=== PATIENT | female | born 1960 | race Caucasian/White ===

== ENCOUNTER 2016-06-30 16:55 | Inpatient (IN) | payer MEDICAID ==
[2016-06-30] MEDS ORDERED: Sodium Chloride 0.9% 10 ML Syringe FLUSH PRN ×2 (19:30→22:48)
[2016-06-30] MEDS ORDERED: Sodium Chloride 0.9% 1,000 ML IV SCH ×3 (19:45→22:48)
--- NOTE | 2016-06-30 21:26 | EDM.PDOC ---
ED HPI GENERAL MEDICAL PROBLEM - General Chief Complaint: General Stated Complaint: SOB, SPACEY, STAGE 4 LIVER CIRROSIS Time Seen by Provider: 06/30/16 18:30 Source of Information: Reports: Family History Limitations: Reports: No limitations - History of Present Illness INITIAL COMMENTS - FREE TEXT/NARRATIVE: This 56-year-old white female was brought in for little status changes. 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 She's been told she can't be transplanted until she lose some weight. Her said that for several days she's been a little [employer] sharp and for the last 3 days she's actually been confused. Today she seems lethargic. Her and worries that she may have gotten into some kind of a drug area she has a history of opiate addict but has been clean for 4 years. Today she didn't know who the president was or even her own birthday. For several days before that she was having problems texting and this was distressing to her. She has complained of burning on urination and he thinks she has had this for a while and just didn't tell him. About 4 days ago she had a bone scan and received some type of injection for this. Her also noted that this morning when she wiped there was a little bit of blood on it he's not sure if it was in stool or in the urine. There is no history of any dark tarry stools. There has been no history of any kind of falls. She doesn't use any alcohol - Related Data Allergies Allergy/AdvReac Type Severity Reaction Status Date / Time venom-honey bee Allergy Swelling Verified 01/24/15 09:19 [bee venom (honey bee)] gabapentin AdvReac Other Verified 06/30/16 17:24 oxycodone HCl [From Percocet] AdvReac Other Verified 06/30/16 17:24 tramadol AdvReac Other Verified 06/30/16 17:24 Deerfly Allergy Swelling Uncoded 01/24/15 09:19 Horsefly Allergy Swelling Uncoded 06/30/16 17:24 Home Meds: Home Meds Amitriptyline [Elavil] 25 mg PO BEDTIME 01/21/15 [History] Ascorbic Acid [Ascorbic Acid] 500 mg PO DAILY 01/21/15 [History] Calcium Carbonate [Calcium] 500 mg PO DAILY 01/21/15 [History] Cetirizine [ZyrTEC] 10 mg PO DAILY PRN 01/21/15 [History] Cholecalciferol (Vitamin D3) [Decara] 50,000 unit PO WEEKLY 01/21/15 [History] Cholecalciferol (Vitamin D3) [Vitamin D3] 5,000 unit PO DAILY 01/21/15 [History] Cyanocobalamin (Vitamin B-12) [Cyanocobalamin Injection] 1,000 mcg IJ Q30D 01/21 [History] Ferrous Sulfate 325 mg PO WITHBREAKFAST 01/21/15 [History] Folic Acid 1 mg PO DAILY 01/21/15 [History] Ibuprofen 600 mg PO Q6H PRN 01/21/15 [History] Loperamide [Imodium AD] 2 mg PO QID PRN 01/21/15 [History] Omeprazole [Prilosec] 40 mg PO DAILY 01/21/15 [History] Sertraline HCl [Sertraline HCl] 100 mg PO DAILY 01/21/15 [History] rOPINIRole HCl [Requip] 1 mg PO BID 01/21/15 [History] Multivitamin [Multiple Vitamins] 1 tab PO DAILY 01/24/15 [History] Dulaglutide [Trulicity] 0.75 mg SQ WEEKLY 12/16/15 [History] Past Medical History Other HEENT History: seasonal allergies Gastrointestinal History: Reports: Cirrhosis Other Gastrointestinal History: incisional hernia Other Musculoskeletal History: right knee pain Other Neuro History: 1 seizure "medication related" Other Endocrine/Metabolic History: borderline DM Social & Family History - Tobacco Use Smoking Status *Q: Never Smoker Years of Tobacco use: 2 Packs/Tins Daily: 0 Used Tobacco, but Quit: Yes Month Tobacco Last Used: o Second Hand Smoke Exposure: No - Recreational Drug Use Recreational Drug Use: No ED ROS GENERAL - Review of Systems Review Of Systems: Unable To Obtain (The patient is too lethargic to obtain a reliable review of systems) ED EXAM, GENERAL - Physical Exam Exam: See Below Exam Limited By: Altered mental status General Appearance: no apparent distress, lethargic, obese Eye Exam: bilateral eye: PERRL, other (No scleral icterus) Throat/Mouth: Other (Mucous membranes slightly dry) Head: atraumatic Neck: supple Respiratory/Chest: lungs clear (Lungs clear but exam is limited because of her obesity) Cardiovascular: regular rate, rhythm, no murmur GI/Abdominal: other (Very obese but doesn't appear distended.) Rectal (Female) Exam: Normal Exam (Slightly yellowish stool just a tiny amount obtained. No evidence of any melena or bleeding) Extremities: normal inspection Neurological: slow to respond, other (The patient can't respond to voice but generally can't give meaningful responses.) Psychiatric: other (She seems lethargic but otherwise comfortable) Skin Exam: Warm, Dry, Intact, Normal color Course - Vital Signs Last Recorded V/S: Last Vital Signs Temp 36.1 C 06/30/16 17:39 Pulse 105 H 06/30/16 20:42 Resp 18 06/30/16 20:42 BP 136/98 H 06/30/16 20:42 Pulse Ox 100 06/30/16 20:42 - Orders/Labs/Meds Orders: Active Orders 24 hr Category Date Time Status EKG Documentation Completion [RC] ASDIRECTED Care 06/30/16 19:30 Active Head wo Cont [CT] Stat Exams 06/30/16 19:33 Taken Sodium Chloride 0.9% [Normal Saline] 1,000 ml Med 06/30/16 19:45 Active IV ASDIRECTED Sodium Chloride 0.9% [Normal Saline] 1,000 ml Med 06/30/16 21:00 Ordered IV ASDIRECTED Sodium Chloride 0.9% [Saline Flush] Med 06/30/16 19:30 Active 10 ml FLUSH ASDIRECTED PRN Saline Lock Insert [OM.PC] Urgent Oth 06/30/16 19:28 Ordered EKG 12 Lead [EK] Urgent Ther 06/30/16 19:29 Ordered Medication Orders Sodium Chloride (Normal Saline) 1,000 mls @ 999 mls/hr IV ASDIRECTED TERRA Last Admin: 06/30/16 20:38 Dose: 999 mls/hr Sodium Chloride (Normal Saline) 1,000 mls @ 150 mls/hr IV ASDIRECTED TERRA Sodium Chloride (Saline Flush) 10 ml FLUSH ASDIRECTED PRN PRN Reason: Keep Vein Open Last Admin: 06/30/16 20:38 Dose: 10 ml Labs: Laboratory Tests 06/30/16 06/30/16 06/30/16 Range/Units 19:46 19:46 19:46 WBC 6.7 (4.5-11.0) K/uL RBC 3.95 (3.30-5.50) M/uL Hgb 10.6 L (12.0-15.0) g/dL Hct 32.9 L (36.0-48.0) % MCV 83 (80-98) fL MCH 27 (27-31) pg MCHC 32 (32-36) % Plt Count 69 L (150-400) K/uL Neut % (Auto) 70 H (36-66) % Lymph % (Auto) 17 L (24-44) % Amelia % (Auto) 11 H (2-6) % Eos % (Auto) 2 (2-4) % Baso % (Auto) 1 (0-1) % PT 14.7 H (9.5-12.0) sec INR 1.37 H (0.80-1.20) APTT 35.7 (27.0-36.0) sec Sodium 144 (140-148) mmol/L Potassium 3.4 L (3.6-5.2) mmol/L Chloride 111 H (100-108) mmol/L Carbon Dioxide 23 (21-32) mmol/L Anion Gap 13.4 (5.0-14.0) mmol/L BUN 14 (7-18) mg/dL Creatinine 0.9 (0.6-1.0) mg/dL Est Cr Clr Drug Dosing 57.05 mL/min Estimated GFR (MDRD) > 60 (>60) Glucose 89 (74-106) mg/dL Lactic Acid (0.4-2.0) mmol/L Calcium 8.0 L (8.5-10.1) mg/dL Total Bilirubin 2.2 H (0.2-1.0) mg/dL AST 71 H (15-37) U/L ALT 33 (12-78) U/L Alkaline Phosphatase 214 H (46-116) U/L Ammonia (11-32) mmol/L Total Protein 6.1 L (6.4-8.2) g/dL Albumin 2.5 L (3.4-5.0) g/dL Globulin 3.6 H (2.3-3.5) g/dL Albumin/Globulin Ratio 0.7 L (1.2-2.2) Urine Color Urine Appearance Urine pH (4.5-8.0) Ur Specific [place] (1.008-1.030) Urine Protein (NEGATIVE) mg/dL Urine Glucose (UA) (NEGATIVE) mg/dL Urine Ketones (NEGATIVE) mg/dL Urine Occult Blood (NEGATIVE) Urine Nitrite (NEGATIVE) Urine Bilirubin (NEGATIVE) Urine Urobilinogen (NORMAL) mg/dL Ur Leukocyte Esterase (NEGATIVE) Urine RBC (0-5) Urine WBC (0-5) Ur Epithelial Cells Amorphous Sediment Urine Bacteria Urine Mucus Urine Opiates Screen (NEGATIVE) Ur Oxycodone Screen (NEGATIVE) Urine Methadone Screen (NEGATIVE) Ur Propoxyphene Screen (NEGATIVE) Ur Barbiturates Screen (NEGATIVE) Ur Tricyclics Screen (NEGATIVE) Ur Phencyclidine Scrn (NEGATIVE) Ur Amphetamine Screen (NEGATIVE) U Methamphetamines Scrn (NEGATIVE) Urine MDMA Screen (NEGATIVE) U Benzodiazepines Scrn (NEGATIVE) U Cocaine Metab Screen (NEGATIVE) U Marijuana (THC) Screen (NEGATIVE) 06/30/16 06/30/16 06/30/16 Range/Units 19:46 19:46 19:57 WBC (4.5-11.0) K/uL RBC (3.30-5.50) M/uL Hgb (12.0-15.0) g/dL Hct (36.0-48.0) % MCV (80-98) fL MCH (27-31) pg MCHC (32-36) % Plt Count (150-400) K/uL Neut % (Auto) (36-66) % Lymph % (Auto) (24-44) % Amelia % (Auto) (2-6) % Eos % (Auto) (2-4) % Baso % (Auto) (0-1) % PT (9.5-12.0) sec INR (0.80-1.20) APTT (27.0-36.0) sec Sodium (140-148) mmol/L Potassium (3.6-5.2) mmol/L Chloride (100-108) mmol/L Carbon Dioxide (21-32) mmol/L Anion Gap (5.0-14.0) mmol/L BUN (7-18) mg/dL Creatinine (0.6-1.0) mg/dL Est Cr Clr Drug Dosing mL/min Estimated GFR (MDRD) (>60) Glucose (74-106) mg/dL Lactic Acid 1.8 (0.4-2.0) mmol/L Calcium (8.5-10.1) mg/dL Total Bilirubin (0.2-1.0) mg/dL AST (15-37) U/L ALT (12-78) U/L Alkaline Phosphatase (46-116) U/L Ammonia 166 H (11-32) mmol/L Total Protein (6.4-8.2) g/dL Albumin (3.4-5.0) g/dL Globulin (2.3-3.5) g/dL Albumin/Globulin Ratio (1.2-2.2) Urine Color Yellow Urine Appearance Slightly cloudy Urine pH 6.0 (4.5-8.0) Ur Specific [place] 1.020 (1.008-1.030) Urine Protein Negative (NEGATIVE) mg/dL Urine Glucose (UA) Normal (NEGATIVE) mg/dL Urine Ketones Negative (NEGATIVE) mg/dL Urine Occult Blood Negative (NEGATIVE) Urine Nitrite Negative (NEGATIVE) Urine Bilirubin Small (NEGATIVE) Urine Urobilinogen 4 (NORMAL) mg/dL Ur Leukocyte Esterase Negative (NEGATIVE) Urine RBC Not seen (0-5) Urine WBC Not seen (0-5) Ur Epithelial Cells Few Amorphous Sediment Few Urine Bacteria Rare Urine Mucus Few Urine Opiates Screen (NEGATIVE) Ur Oxycodone Screen (NEGATIVE) Urine Methadone Screen (NEGATIVE) Ur Propoxyphene Screen (NEGATIVE) Ur Barbiturates Screen (NEGATIVE) Ur Tricyclics Screen (NEGATIVE) Ur Phencyclidine Scrn (NEGATIVE) Ur Amphetamine Screen (NEGATIVE) U Methamphetamines Scrn (NEGATIVE) Urine MDMA Screen (NEGATIVE) U Benzodiazepines Scrn (NEGATIVE) U Cocaine Metab Screen (NEGATIVE) U Marijuana (THC) Screen (NEGATIVE) 06/30/16 Range/Units 19:57 WBC (4.5-11.0) K/uL RBC (3.30-5.50) M/uL Hgb (12.0-15.0) g/dL Hct (36.0-48.0) % MCV (80-98) fL MCH (27-31) pg MCHC (32-36) % Plt Count (150-400) K/uL Neut % (Auto) (36-66) % Lymph % (Auto) (24-44) % Amelia % (Auto) (2-6) % Eos % (Auto) (2-4) % Baso % (Auto) (0-1) % PT (9.5-12.0) sec INR (0.80-1.20) APTT (27.0-36.0) sec Sodium (140-148) mmol/L Potassium (3.6-5.2) mmol/L Chloride (100-108) mmol/L Carbon Dioxide (21-32) mmol/L Anion Gap (5.0-14.0) mmol/L BUN (7-18) mg/dL Creatinine (0.6-1.0) mg/dL Est Cr Clr Drug Dosing mL/min Estimated GFR (MDRD) (>60) Glucose (74-106) mg/dL Lactic Acid (0.4-2.0) mmol/L Calcium (8.5-10.1) mg/dL Total Bilirubin (0.2-1.0) mg/dL AST (15-37) U/L ALT (12-78) U/L Alkaline Phosphatase (46-116) U/L Ammonia (11-32) mmol/L Total Protein (6.4-8.2) g/dL Albumin (3.4-5.0) g/dL Globulin (2.3-3.5) g/dL Albumin/Globulin Ratio (1.2-2.2) Urine Color Urine Appearance Urine pH (4.5-8.0) Ur Specific [place] (1.008-1.030) Urine Protein (NEGATIVE) mg/dL Urine Glucose (UA) (NEGATIVE) mg/dL Urine Ketones (NEGATIVE) mg/dL Urine Occult Blood (NEGATIVE) Urine Nitrite (NEGATIVE) Urine Bilirubin (NEGATIVE) Urine Urobilinogen (NORMAL) mg/dL Ur Leukocyte Esterase (NEGATIVE) Urine RBC (0-5) Urine WBC (0-5) Ur Epithelial Cells Amorphous Sediment Urine Bacteria Urine Mucus Urine Opiates Screen Negative (NEGATIVE) Ur Oxycodone Screen Negative (NEGATIVE) Urine Methadone Screen Negative (NEGATIVE) Ur Propoxyphene Screen Negative (NEGATIVE) Ur Barbiturates Screen Negative (NEGATIVE) Ur Tricyclics Screen Positive H (NEGATIVE) Ur Phencyclidine Scrn Negative (NEGATIVE) Ur Amphetamine Screen Negative (NEGATIVE) U Methamphetamines Scrn Negative (NEGATIVE) Urine MDMA Screen Negative (NEGATIVE) U Benzodiazepines Scrn Negative (NEGATIVE) U Cocaine Metab Screen Negative (NEGATIVE) U Marijuana (THC) Screen Negative (NEGATIVE) Meds: Medications Generic Name Dose Route Start Last Admin Trade Name Williamq PRN Reason Stop Dose Admin Sodium Chloride 1,000 mls @ 999 mls/hr 06/30/16 19:45 06/30/16 20:38 Normal Saline IV 999 mls/hr ASDIRECTED TERRA Administration Sodium Chloride 1,000 mls @ 150 mls/hr 06/30/16 21:00 Normal Saline IV ASDIRECTED TERRA Sodium Chloride 10 ml 06/30/16 19:30 06/30/16 20:38 Saline Flush FLUSH 10 ml ASDIRECTED PRN Administration Keep Vein Open - Radiology Interpretation Free Text/Narrative:: Head CT shows no acute intracranial pathology. - Re-Assessments/Exams Free Text/Narrative Re-Assessment/Exam: 06/30/16 21:30 An EKG shows a sinus rhythm at 97 beats per minute there is prolonged QT intervals. Normal QRS is Free Text/Narrative Re-Assessment/Exam: 06/30/16 21:30 After my initial workup I noted that shortness of breath was included in the chief complaint. Neither the patient nor her mentions any of this. Will go ahead and get a chest x-ray. Labs were back on this patient had been done and the ammonia level of 166. She' s been hydrated with 1 L of normal saline. She seems slightly more alert. I spoke with Dr. Taylor and this lady will be admitted to the ICU. I felt like she is just a little bit too lethargic to go to the regular medical floor Departure - Departure Time of Disposition: 21:32 Disposition: Admitted As Inpatient 65 Condition: serious Clinical Impression: Hepatic encephalopathy Forms: ED Department Discharge - My Orders Last 24 Hours: My Active Orders 06/30/16 19:28 Saline Lock Insert [OM.PC] Urgent 06/30/16 19:29 EKG 12 Lead [EK] Urgent 06/30/16 19:30 EKG Documentation Completion [RC] ASDIRECTED Sodium Chloride 0.9% [Saline Flush] 10 ml FLUSH ASDIRECTED PRN 06/30/16 19:33 Head wo Cont [CT] Stat 06/30/16 19:45 Sodium Chloride 0.9% [Normal Saline] 1,000 ml IV ASDIRECTED 06/30/16 21:00 Sodium Chloride 0.9% [Normal Saline] 1,000 ml IV ASDIRECTED - Assessment/Plan Last 24 Hours: My Active Orders 06/30/16 19:28 Saline Lock Insert [OM.PC] Urgent 06/30/16 19:29 EKG 12 Lead [EK] Urgent 06/30/16 19:30 EKG Documentation Completion [RC] ASDIRECTED Sodium Chloride 0.9% [Saline Flush] 10 ml FLUSH ASDIRECTED PRN 06/30/16 19:33 Head wo Cont [CT] Stat 06/30/16 19:45 Sodium Chloride 0.9% [Normal Saline] 1,000 ml IV ASDIRECTED 06/30/16 21:00 Sodium Chloride 0.9% [Normal Saline] 1,000 ml IV ASDIRECTED
[2016-06-30] MEDS ORDERED: Lactulose Soln 10 GM/15 ML 15 ML UD Cup PO ONE (22:17)
[2016-06-30] MEDS ORDERED: Sodium Polystyrene Sulfonate 15 GM/60 ML Susp 60 ML Bot ONE (22:21)
[2016-06-30] MEDS ORDERED: Lactulose Soln 10 GM/15 ML 15 ML UD Cup ONE (22:25)
--- NOTE | 2016-06-30 22:36 | PCM.HP ---
H&P History of Present Illness - General Date of Service: 06/30/16 Admit Problem/Dx: Admission Diagnosis/Problem Admission Diagnosis/Problem Hepatic encephalopathy Source of Information: Patient, Family, Old records, Provider, RN notes reviewed History Limitations: Reports: Altered mental status (Hepatic encephalopathy) - History of Present Illness Initial Comments - Free Text/Narative: This patient is a 56-year-old woman who was admitted through the emergency department with progressive lethargy, confusion, and weakness over the past 4 days. Patient herself is fairly confused and unable to provide an accurate history concerning recent symptoms or events. states that for the past week she has been mildly confused but this is become significantly worse over the past 4 days. This morning she was extremely lethargic he had difficulty getting her to wake up. She was brought into the emergency department late this afternoon or further evaluation and management. CT scan of the head without contrast is unremarkable, urine drug screen is negative, there've been no new medications, and there's no evidence of underlying infection. 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 [place] level was obtained it was significantly elevated at 166. - Related Data Allergies/Adverse Reactions: Allergies Allergy/AdvReac Type Severity Reaction Status Date / Time venom-honey bee Allergy Swelling Verified 01/24/15 09:19 [bee venom (honey bee)] gabapentin AdvReac Other Verified 06/30/16 17:24 oxycodone HCl [From Percocet] AdvReac Other Verified 06/30/16 17:24 tramadol AdvReac Other Verified 06/30/16 17:24 Deerfly Allergy Swelling Uncoded 01/24/15 09:19 Horsefly Allergy Swelling Uncoded 06/30/16 17:24 Home Medications: Home Meds Amitriptyline [Elavil] 25 mg PO BEDTIME 01/21/15 [History] Ascorbic Acid [Ascorbic Acid] 500 mg PO DAILY 01/21/15 [History] Calcium Carbonate [Calcium] 500 mg PO DAILY 01/21/15 [History] Cetirizine [ZyrTEC] 10 mg PO DAILY PRN 01/21/15 [History] Cholecalciferol (Vitamin D3) [Decara] 50,000 unit PO WEEKLY 01/21/15 [History] Cholecalciferol (Vitamin D3) [Vitamin D3] 5,000 unit PO DAILY 01/21/15 [History] Cyanocobalamin (Vitamin B-12) [Cyanocobalamin Injection] 1,000 mcg IJ Q30D 01/21 [History] Ferrous Sulfate 325 mg PO WITHBREAKFAST 01/21/15 [History] Folic Acid 1 mg PO DAILY 01/21/15 [History] Ibuprofen 600 mg PO Q6H PRN 01/21/15 [History] Loperamide [Imodium AD] 2 mg PO QID PRN 01/21/15 [History] Omeprazole [Prilosec] 40 mg PO DAILY 01/21/15 [History] Sertraline HCl [Sertraline HCl] 100 mg PO DAILY 01/21/15 [History] rOPINIRole HCl [Requip] 1 mg PO BID 01/21/15 [History] Multivitamin [Multiple Vitamins] 1 tab PO DAILY 01/24/15 [History] Dulaglutide [Trulicity] 0.75 mg SQ WEEKLY 12/16/15 [History] Past Medical History Other HEENT History: seasonal allergies Gastrointestinal History: Reports: Cirrhosis Other Gastrointestinal History: incisional hernia Other Musculoskeletal History: right knee pain Other Neuro History: 1 seizure "medication related" Other Endocrine/Metabolic History: borderline DM Social & Family History - Tobacco Use Smoking Status *Q: Never Smoker Years of Tobacco use: 2 Packs/Tins Daily: 0 Used Tobacco, but Quit: Yes Month Tobacco Last Used: o Second Hand Smoke Exposure: No - Recreational Drug Use Recreational Drug Use: No H&P Review of Systems - Review of Systems: Review Of Systems: Unable To Obtain General: Reports: ROS unobtainable (Significant hepatic encephalopathy) Exam - Exam Exam: See Below - Vital Signs Vital Signs: Last Vital Signs Temp 97.0 F 06/30/16 17:39 Pulse 100 06/30/16 21:43 Resp 18 06/30/16 20:42 BP 122/54 L 06/30/16 21:43 Pulse Ox 100 06/30/16 21:43 Weight: 270 lb - Exam General: cooperative, mild distress HEENT: Conjunctiva clear, Hearing intact, Mucosa moist & pink, Nares patent, Normal nasal septum, Posterior pharynx clear, Pupils equal, Pupils reactive Neck: supple, trachea midline, +2 carotid pulse wo bruit Lungs: Clear to auscultation, Normal respiratory effort Cardiovascular: regular rhythm, normal S1, normal S2, tachycardia. No: systolic murmur, diastolic murmur Abdomen: normal bowel sounds, soft Back Exam: normal inspection, full range of motion, NT Extremities: edema Skin: warm, dry, intact Neurological: cranial nerves intact, strength equal bilateral, normal speech, normal tone, sensation intact. No: focal deficit Neuro Extensive - Mental Status: disorientation to place, disorientation to time , memory loss-remote events, memory loss-recent events, slow response to commands. No: disorientation to person - Patient Data Lab Results last 24 hrs: Laboratory Results - last 24 hr 06/30/16 06/30/16 06/30/16 Range/Units 19:46 19:46 19:46 WBC 6.7 (4.5-11.0) K/uL RBC 3.95 (3.30-5.50) M/uL Hgb 10.6 L (12.0-15.0) g/dL Hct 32.9 L (36.0-48.0) % MCV 83 (80-98) fL MCH 27 (27-31) pg MCHC 32 (32-36) % Plt Count 69 L (150-400) K/uL Neut % (Auto) 70 H (36-66) % Lymph % (Auto) 17 L (24-44) % [place] % (Auto) 11 H (2-6) % Eos % (Auto) 2 (2-4) % Baso % (Auto) 1 (0-1) % PT 14.7 H (9.5-12.0) sec INR 1.37 H (0.80-1.20) APTT 35.7 (27.0-36.0) sec Sodium 144 (140-148) mmol/L Potassium 3.4 L (3.6-5.2) mmol/L Chloride 111 H (100-108) mmol/L Carbon Dioxide 23 (21-32) mmol/L Anion Gap 13.4 (5.0-14.0) mmol/L BUN 14 (7-18) mg/dL Creatinine 0.9 (0.6-1.0) mg/dL Est Cr Clr Drug Dosing 57.05 mL/min Estimated GFR (MDRD) > 60 (>60) Glucose 89 (74-106) mg/dL Lactic Acid (0.4-2.0) mmol/L Calcium 8.0 L (8.5-10.1) mg/dL Total Bilirubin 2.2 H (0.2-1.0) mg/dL AST 71 H (15-37) U/L ALT 33 (12-78) U/L Alkaline Phosphatase 214 H (46-116) U/L Ammonia (11-32) mmol/L Total Protein 6.1 L (6.4-8.2) g/dL Albumin 2.5 L (3.4-5.0) g/dL Globulin 3.6 H (2.3-3.5) g/dL Albumin/Globulin Ratio 0.7 L (1.2-2.2) Urine Color Urine Appearance Urine pH (4.5-8.0) Ur Specific [place] (1.008-1.030) Urine Protein (NEGATIVE) mg/dL Urine Glucose (UA) (NEGATIVE) mg/dL Urine Ketones (NEGATIVE) mg/dL Urine Occult Blood (NEGATIVE) Urine Nitrite (NEGATIVE) Urine Bilirubin (NEGATIVE) Urine Urobilinogen (NORMAL) mg/dL Ur Leukocyte Esterase (NEGATIVE) Urine RBC (0-5) Urine WBC (0-5) Ur Epithelial Cells Amorphous Sediment Urine Bacteria Urine Mucus Urine Opiates Screen (NEGATIVE) Ur Oxycodone Screen (NEGATIVE) Urine Methadone Screen (NEGATIVE) Ur Propoxyphene Screen (NEGATIVE) Ur Barbiturates Screen (NEGATIVE) Ur Tricyclics Screen (NEGATIVE) Ur Phencyclidine Scrn (NEGATIVE) Ur Amphetamine Screen (NEGATIVE) U Methamphetamines Scrn (NEGATIVE) Urine MDMA Screen (NEGATIVE) U Benzodiazepines Scrn (NEGATIVE) U Cocaine Metab Screen (NEGATIVE) U Marijuana (THC) Screen (NEGATIVE) 06/30/16 06/30/16 06/30/16 Range/Units 19:46 19:46 19:57 WBC (4.5-11.0) K/uL RBC (3.30-5.50) M/uL Hgb (12.0-15.0) g/dL Hct (36.0-48.0) % MCV (80-98) fL MCH (27-31) pg MCHC (32-36) % Plt Count (150-400) K/uL Neut % (Auto) (36-66) % Lymph % (Auto) (24-44) % [place] % (Auto) (2-6) % Eos % (Auto) (2-4) % Baso % (Auto) (0-1) % PT (9.5-12.0) sec INR (0.80-1.20) APTT (27.0-36.0) sec Sodium (140-148) mmol/L Potassium (3.6-5.2) mmol/L Chloride (100-108) mmol/L Carbon Dioxide (21-32) mmol/L Anion Gap (5.0-14.0) mmol/L BUN (7-18) mg/dL Creatinine (0.6-1.0) mg/dL Est Cr Clr Drug Dosing mL/min Estimated GFR (MDRD) (>60) Glucose (74-106) mg/dL Lactic Acid 1.8 (0.4-2.0) mmol/L Calcium (8.5-10.1) mg/dL Total Bilirubin (0.2-1.0) mg/dL AST (15-37) U/L ALT (12-78) U/L Alkaline Phosphatase (46-116) U/L Ammonia 166 H (11-32) mmol/L Total Protein (6.4-8.2) g/dL Albumin (3.4-5.0) g/dL Globulin (2.3-3.5) g/dL Albumin/Globulin Ratio (1.2-2.2) Urine Color Yellow Urine Appearance Slightly cloudy Urine pH 6.0 (4.5-8.0) Ur Specific [place] 1.020 (1.008-1.030) Urine Protein Negative (NEGATIVE) mg/dL Urine Glucose (UA) Normal (NEGATIVE) mg/dL Urine Ketones Negative (NEGATIVE) mg/dL Urine Occult Blood Negative (NEGATIVE) Urine Nitrite Negative (NEGATIVE) Urine Bilirubin Small (NEGATIVE) Urine Urobilinogen 4 (NORMAL) mg/dL Ur Leukocyte Esterase Negative (NEGATIVE) Urine RBC Not seen (0-5) Urine WBC Not seen (0-5) Ur Epithelial Cells Few Amorphous Sediment Few Urine Bacteria Rare Urine Mucus Few Urine Opiates Screen (NEGATIVE) Ur Oxycodone Screen (NEGATIVE) Urine Methadone Screen (NEGATIVE) Ur Propoxyphene Screen (NEGATIVE) Ur Barbiturates Screen (NEGATIVE) Ur Tricyclics Screen (NEGATIVE) Ur Phencyclidine Scrn (NEGATIVE) Ur Amphetamine Screen (NEGATIVE) U Methamphetamines Scrn (NEGATIVE) Urine MDMA Screen (NEGATIVE) U Benzodiazepines Scrn (NEGATIVE) U Cocaine Metab Screen (NEGATIVE) U Marijuana (THC) Screen (NEGATIVE) 06/30/16 Range/Units 19:57 WBC (4.5-11.0) K/uL RBC (3.30-5.50) M/uL Hgb (12.0-15.0) g/dL Hct (36.0-48.0) % MCV (80-98) fL MCH (27-31) pg MCHC (32-36) % Plt Count (150-400) K/uL Neut % (Auto) (36-66) % Lymph % (Auto) (24-44) % [place] % (Auto) (2-6) % Eos % (Auto) (2-4) % Baso % (Auto) (0-1) % PT (9.5-12.0) sec INR (0.80-1.20) APTT (27.0-36.0) sec Sodium (140-148) mmol/L Potassium (3.6-5.2) mmol/L Chloride (100-108) mmol/L Carbon Dioxide (21-32) mmol/L Anion Gap (5.0-14.0) mmol/L BUN (7-18) mg/dL Creatinine (0.6-1.0) mg/dL Est Cr Clr Drug Dosing mL/min Estimated GFR (MDRD) (>60) Glucose (74-106) mg/dL Lactic Acid (0.4-2.0) mmol/L Calcium (8.5-10.1) mg/dL Total Bilirubin (0.2-1.0) mg/dL AST (15-37) U/L ALT (12-78) U/L Alkaline Phosphatase (46-116) U/L Ammonia (11-32) mmol/L Total Protein (6.4-8.2) g/dL Albumin (3.4-5.0) g/dL Globulin (2.3-3.5) g/dL Albumin/Globulin Ratio (1.2-2.2) Urine Color Urine Appearance Urine pH (4.5-8.0) Ur Specific [place] (1.008-1.030) Urine Protein (NEGATIVE) mg/dL Urine Glucose (UA) (NEGATIVE) mg/dL Urine Ketones (NEGATIVE) mg/dL Urine Occult Blood (NEGATIVE) Urine Nitrite (NEGATIVE) Urine Bilirubin (NEGATIVE) Urine Urobilinogen (NORMAL) mg/dL Ur Leukocyte Esterase (NEGATIVE) Urine RBC (0-5) Urine WBC (0-5) Ur Epithelial Cells Amorphous Sediment Urine Bacteria Urine Mucus Urine Opiates Screen Negative (NEGATIVE) Ur Oxycodone Screen Negative (NEGATIVE) Urine Methadone Screen Negative (NEGATIVE) Ur Propoxyphene Screen Negative (NEGATIVE) Ur Barbiturates Screen Negative (NEGATIVE) Ur Tricyclics Screen Positive H (NEGATIVE) Ur Phencyclidine Scrn Negative (NEGATIVE) Ur Amphetamine Screen Negative (NEGATIVE) U Methamphetamines Scrn Negative (NEGATIVE) Urine MDMA Screen Negative (NEGATIVE) U Benzodiazepines Scrn Negative (NEGATIVE) U Cocaine Metab Screen Negative (NEGATIVE) U Marijuana (THC) Screen Negative (NEGATIVE) Result Diagrams: 06/30/16 19:46 06/30/16 19:46 *Q Meaningful Use (ADM) - VTE *Q VTE Criteria *Q: - VTE Risk Assess *Q Each Risk Factor Represents 1 Point: Age 41 - 59 years Total Score 1 Point Risk Factors: 1 Each Risk Factor Represents 2 Points: Morbid Obesity (BMI Greater than 40) Total Score 2 Point Risk Factors: 2 Each Risk Factor Represents 3 Points: None Total Score 3 Point Risk Factors: 0 Each Risk Factor Represents 5 Points: None Total Score 5 Point Risk Factors: 0 Venous Thromboembolism Risk Factor Score *Q: 3 - Stroke *Q Stroke Criteria *Q: - AMI *Q AMI Criteria *Q: Problem List Initiated/Reviewed/Updated: Yes Orders Last 24hrs: Active Orders 24 hr Category Date Time Status Patient Status Manage Transfer [TRANSFER] Routine ADT 06/30/16 22:17 Active Cardiac Monitoring [RC] .As Directed Care 06/30/16 22:17 Active EKG Documentation Completion [RC] ASDIRECTED Care 06/30/16 19:30 Active Chest 1V Frontal [CR] Urgent Exams 06/30/16 21:20 Taken Head wo Cont [CT] Stat Exams 06/30/16 19:33 Taken Sodium Chloride 0.9% [Normal Saline] 1,000 ml Med 06/30/16 19:45 Active IV ASDIRECTED Sodium Chloride 0.9% [Normal Saline] 1,000 ml Med 06/30/16 21:00 Active IV ASDIRECTED Sodium Chloride 0.9% [Saline Flush] Med 06/30/16 19:30 Active 10 ml FLUSH ASDIRECTED PRN Saline Lock Insert [OM.PC] Urgent Oth 06/30/16 19:28 Ordered Resuscitation Status Routine Resus Stat 06/30/16 22:19 Ordered EKG 12 Lead [EK] Urgent Ther 06/30/16 19:29 Ordered Medication Orders Sodium Chloride (Normal Saline) 1,000 mls @ 999 mls/hr IV ASDIRECTED TERRA Last Admin: 06/30/16 20:38 Dose: 999 mls/hr Sodium Chloride (Normal Saline) 1,000 mls @ 150 mls/hr IV ASDIRECTED TERRA Last Admin: 06/30/16 21:45 Dose: 150 mls/hr Sodium Chloride (Saline Flush) 10 ml FLUSH ASDIRECTED PRN PRN Reason: Keep Vein Open Last Admin: 06/30/16 20:38 Dose: 10 ml Assessment/Plan Comment:: ASSESSMENT AND PLAN HEPATIC ENCEPHALOPATHY-on evaluation there is no PER DIEM PHYSICAL THERAPIST abnormality, evidence of infection, other significant metabolic abnormality, or new medication. Multilevel is significantly elevated consistent with this diagnosis. -Hold sedating medications -Lactulose 45 g by mouth now -Lactulose 30 g by mouth every 4 hours -Repeat ammonia level in the a.m. -Monitor closely for any evidence of underlying infection, none noted thus far -Review appropriate dietary modifications with patient and family wants encephalopathy has cleared HEPATIC CIRRHOSIS-secondary to non-alcoholic steatohepatitis MAINTENANCE ISSUES -DVT prophylaxis; Lovenox 40 mg subcutaneous daily -GI prophylaxis; continue outpatient PPI therapy -Hernandez catheter; not indicated -Nutrition; 2 g sodium diet -Nicotine dependence; not required CODE STATUS-FULL CODE ADMISSION STATUS-patient will be admitted to inpatient status, expect at least a 2 night hospital stay for evaluation and management of problems as outlined above. At the time of this admission I do not reasonably expected evaluation and management of this problem will require more than a 96 hour hospital stay. DISPOSITION-anticipate discharge to home after the hospital stay. PRIMARY CARE PROVIDER-Dr. Darryl Patrick
[2016-06-30] MEDS ORDERED: Albuterol 0.083% 2.5 MG/3 ML Neb Soln NEB PRN (22:48)
[2016-06-30] MEDS ORDERED: Ondansetron 4 MG/2 ML SDV IV PRN (22:48)
[2016-06-30] MEDS ORDERED: Potassium Chloride 20 MEQ Tab.ER PO ONE (22:48)
[2016-07-01] MEDS ORDERED: Lactulose Soln 10 GM/15 ML 15 ML UD Cup PO SCH ×2 (03:00→08:00)
[2016-07-01] MEDS: Pantoprazole 40 MG Tab.CR PO SCH (07:23)
[2016-07-01] MEDS: Sertraline 50 MG Tab PO SCH (08:34)
[2016-07-01] MEDS ORDERED: Enoxaparin 40 MG/0.4 ML Syringe SUBCUT SCH (09:00)
--- NOTE | 2016-07-01 09:21 | PCM.PN ---
- General Info Date of Service: 07/01/16 Functional Status: Reports: pain controlled - Review of Systems General: Reports: Weakness. Denies: Fever, Chills Pulmonary: Reports: no symptoms Cardiovascular: Reports: No Symptoms Gastrointestinal: Reports: No symptoms Psychiatric: Reports: confusion Systems Review Comment:: This patient has improved since admission, less confused and lethargic. Symptoms have not totally resolved. She's been afebrile and hemodynamically stable. - Patient Data Vitals - most recent: Last Vital Signs Temp 99 F 07/01/16 07:24 Pulse 100 06/30/16 21:43 Resp 16 07/01/16 07:24 BP 151/87 H 07/01/16 07:24 Pulse Ox 100 07/01/16 07:24 Weight - most recent: 272 lb 4.334 oz I&O - last 24 hours: Intake & Output 06/30/16 07/01/16 07/01/16 22:59 06:59 14:59 Intake Total 1062 Output Total 800 Balance 262 Lab Results last 24 hrs: Laboratory Results - last 24 hr 06/30/16 07/01/16 07/01/16 Range/Units 22:48 05:50 05:50 WBC 6.6 (4.5-11.0) K/uL RBC 3.75 (3.30-5.50) M/uL Hgb 10.1 L (12.0-15.0) g/dL Hct 31.5 L (36.0-48.0) % MCV 84 (80-98) fL MCH 27 (27-31) pg MCHC 32 (32-36) % Plt Count 67 L (150-400) K/uL Neut % (Auto) 69 H (36-66) % Lymph % (Auto) 19 L (24-44) % [place] % (Auto) 10 H (2-6) % Eos % (Auto) 1 L (2-4) % Baso % (Auto) 1 (0-1) % PT 15.2 H (9.5-12.0) sec INR 1.42 H (0.80-1.20) Sodium (140-148) mmol/L Potassium (3.6-5.2) mmol/L Chloride (100-108) mmol/L Carbon Dioxide (21-32) mmol/L Anion Gap (5.0-14.0) mmol/L BUN (7-18) mg/dL Creatinine (0.6-1.0) mg/dL Est Cr Clr Drug Dosing mL/min Estimated GFR (MDRD) (>60) Glucose (74-106) mg/dL Calcium (8.5-10.1) mg/dL Total Bilirubin (0.2-1.0) mg/dL AST (15-37) U/L ALT (12-78) U/L Alkaline Phosphatase (46-116) U/L Ammonia 214 H (11-32) mmol/L Total Protein (6.4-8.2) g/dL Albumin (3.4-5.0) g/dL Globulin (2.3-3.5) g/dL Albumin/Globulin Ratio (1.2-2.2) 07/01/16 07/01/16 Range/Units 05:50 05:50 WBC (4.5-11.0) K/uL RBC (3.30-5.50) M/uL Hgb (12.0-15.0) g/dL Hct (36.0-48.0) % MCV (80-98) fL MCH (27-31) pg MCHC (32-36) % Plt Count (150-400) K/uL Neut % (Auto) (36-66) % Lymph % (Auto) (24-44) % [place] % (Auto) (2-6) % Eos % (Auto) (2-4) % Baso % (Auto) (0-1) % PT (9.5-12.0) sec INR (0.80-1.20) Sodium 146 (140-148) mmol/L Potassium 3.8 (3.6-5.2) mmol/L Chloride 115 H (100-108) mmol/L Carbon Dioxide 21 (21-32) mmol/L Anion Gap 13.8 (5.0-14.0) mmol/L BUN 12 (7-18) mg/dL Creatinine 0.9 (0.6-1.0) mg/dL Est Cr Clr Drug Dosing 57.05 mL/min Estimated GFR (MDRD) > 60 (>60) Glucose 104 (74-106) mg/dL Calcium 7.8 L (8.5-10.1) mg/dL Total Bilirubin 2.4 H (0.2-1.0) mg/dL AST 76 H (15-37) U/L ALT 33 (12-78) U/L Alkaline Phosphatase 208 H (46-116) U/L Ammonia 71 H (11-32) mmol/L Total Protein 6.0 L (6.4-8.2) g/dL Albumin 2.5 L (3.4-5.0) g/dL Globulin 3.5 (2.3-3.5) g/dL Albumin/Globulin Ratio 0.7 L (1.2-2.2) Med Orders - Current: Current Medications Albuterol (Proventil Neb Soln) 2.5 mg NEB Q4H PRN PRN Reason: Shortness Of Breath/wheezing Lactulose (Chronulac) 10 gm PO QID [facility] Ondansetron HCl (Zofran) 4 mg IV Q4H PRN PRN Reason: Nausea/Vomiting Pantoprazole Sodium (Protonix) 40 mg PO ACBREAKFAST [facility] Last Admin: 07/01/16 07:23 Dose: 40 mg Sertraline HCl (Zoloft) 100 mg PO DAILY [facility] Last Admin: 07/01/16 08:34 Dose: 100 mg Sodium Chloride (Saline Flush) 10 ml FLUSH ASDIRECTED PRN PRN Reason: Keep Vein Open Discontinued Medications Enoxaparin Sodium (Lovenox) 40 mg SUBCUT DAILY [facility] Sodium Chloride (Normal Saline) 1,000 mls @ 999 mls/hr IV ASDIRECTED [facility] Last Admin: 06/30/16 20:38 Dose: 999 mls/hr Sodium Chloride (Normal Saline) 1,000 mls @ 150 mls/hr IV ASDIRECTED [facility] Last Admin: 06/30/16 21:45 Dose: 150 mls/hr Sodium Chloride (Normal Saline) 1,000 mls @ 125 mls/hr IV ASDIRECTED [facility] Last Admin: 07/01/16 05:11 Dose: 125 mls/hr Lactulose (Chronulac) 30 gm PO ONETIME ONE Stop: 06/30/16 22:18 Last Admin: 06/30/16 22:52 Dose: 30 gm Lactulose (Chronulac) Confirm Administered Dose 10 gm .ROUTE .STK-MED ONE Stop: 06/30/16 22:26 Last Admin: 06/30/16 22:53 Dose: Not Given Lactulose (Chronulac) 20 gm PO Q4H [facility] Last Admin: 07/01/16 02:53 Dose: 20 gm Lactulose (Chronulac) 20 gm PO Q4H [facility] Last Admin: 07/01/16 07:24 Dose: 20 gm Potassium Chloride (Klor-Con M20) 40 meq PO ONETIME ONE Stop: 06/30/16 22:49 Last Admin: 06/30/16 23:15 Dose: 40 meq Sodium Chloride (Saline Flush) 10 ml FLUSH ASDIRECTED PRN PRN Reason: Keep Vein Open Last Admin: 06/30/16 20:38 Dose: 10 ml Sodium Polystyrene Sulfonate (Kayexalate) Confirm Administered Dose 15 gm .ROUTE .STK-MED ONE Stop: 06/30/16 22:22 Last Admin: 06/30/16 22:53 Dose: Not Given - Exam Quality Assessment: DVT prophylaxis General: cooperative, no acute distress Lungs: Clear to auscultation, Normal respiratory effort Cardiovascular: Regular Rate, Regular Rhythm, No Murmurs Abdomen: bowel sounds present, soft, no tenderness, no distension Extremities: edema Skin: warm, dry, intact - Problem List Review Problem List Initiated/Reviewed/Updated: Yes - My Orders Last 24 Hours: My Active Orders 07/01/16 09:10 Convert IV to Saline Lock [OM.PC] Routine Sequential Compression Device [OM.PC] Routine 07/01/16 10:00 Lactulose [Chronulac] 10 gm PO QID 07/01/16 21:00 rOPINIRole [Requip] 1 mg PO BID 07/02/16 05:00 BASIC METABOLIC PANEL,BMP [CHEM] Timed CBC WITH AUTO DIFF [HEME] Timed INR,PT,PROTHROMBIN TIME [COAG] Timed 07/02/16 05:11 AMMONIA VENOUS [CHEM] AM - Plan Plan:: ASSESSMENT AND PLAN HEPATIC ENCEPHALOPATHY-on evaluation there is no MEDICAL ATTENDANT abnormality, evidence of infection, other significant metabolic abnormality, or new medication. She has improved since admission, remains mildly lethargic and confused but much better than she had been at the time of admission -Lactulose 10 g by mouth 4 times a day -Repeat ammonia level in the a.m. -Monitor closely for any evidence of underlying infection, none noted thus far -Review appropriate dietary modifications with patient and family wants encephalopathy has cleared HEPATIC CIRRHOSIS-secondary to non-alcoholic steatohepatitis MAINTENANCE ISSUES -DVT prophylaxis; Lovenox 40 mg subcutaneous daily -GI prophylaxis; continue outpatient PPI therapy -Hernandez catheter; not indicated -Nutrition; 2 g sodium diet -Nicotine dependence; not required CODE STATUS-FULL CODE ADMISSION STATUS-patient will be admitted to inpatient status, expect at least a 2 night hospital stay for evaluation and management of problems as outlined above. At the time of this admission I do not reasonably expected evaluation and management of this problem will require more than a 96 hour hospital stay. DISPOSITION-anticipate discharge to home after the hospital stay. PRIMARY CARE PROVIDER-Dr. Darryl Patrick
[2016-07-01] MEDS: rOPINIRole 1 MG Tab PO SCH ×2 (09:28→20:09)
[2016-07-01] MEDS: Lactulose Soln 10 GM/15 ML 15 ML UD Cup PO SCH ×3 (11:13→22:01)
[2016-07-01] MEDS: Ibuprofen 400 MG Tab PO PRN (17:48)
[2016-07-01] MEDS ORDERED: Amitriptyline 25 MG Tab PO SCH (21:00)
[2016-07-01] MEDS ORDERED: Furosemide 20 MG/2 ML VIAL IVPUSH ONE (21:17)
[2016-07-01] MEDS ORDERED: rOPINIRole 1 MG Tab PO ONE (21:21)
[2016-07-02] MEDS: Ibuprofen 400 MG Tab PO PRN (00:03)
[2016-07-02] MEDS: Lactulose Soln 10 GM/15 ML 15 ML UD Cup PO SCH ×2 (05:19→10:30)
[2016-07-02] MEDS: Pantoprazole 40 MG Tab.CR PO SCH (08:18)
[2016-07-02] MEDS ORDERED: Furosemide 20 MG Tab PO SCH (09:00)
--- NOTE | 2016-07-02 09:27 | CR ---
Chest 1V Frontal FINDINGS: The heart and vascular structures are normal in appearance. No infiltrates or effusions ar e demonstrated. The skeletal structures are unremarkable. IMPRESSION: Negative exam.
[2016-07-02] MEDS ORDERED: Potassium Chloride 20 MEQ Tab.ER PO ONE (09:30)
[2016-07-02] MEDS: Sertraline 50 MG Tab PO SCH (10:29)
[2016-07-02 11:04] VITALS: BP 140/76
[2016-07-02] MEDS ORDERED: rOPINIRole 1 MG Tab PO ONE (12:30)
--- NOTE | 2016-07-02 13:14 | US ---
Limited abdominal survey A 4 quadrant survey of the abdomen demonstrates no evidence for ascites. Impression: 1. Negative ascites.
--- NOTE | 2016-07-02 13:57 | PCM.DCSUM1 ---
Discharge Summary - Hospital Course Brief History: 56-year-old female with cirrhosis caused by WILLIS who presented with increasing confusion and lethargy. She was admitted for management of hepatic encephalopathy. 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 Workup in the emergency room was remarkable for significant elevation of her ammonia level. She was started on lactulose and admitted to the hospital. Overnight following admission her ammonia level improved and so did her mental status. She was not yet back to baseline and was still weak so she stayed an additional day for further clearing with additional lactulose therapy. By the morning of admission her ammonia level has normalized and clinically she is doing much better as far as her mental status. She is complaining of some discomfort in the back of her right thigh as well as her abdomen. She has a very distended abdomen and some swelling in the right leg. I did ask the ultrasound folks to murphy for paracentesis but they were unable to locate a pocket large enough to perform a paracentesis. I was quite surprised by the lack of significant ascites given the distention of her abdomen. I had a long discussion with the patient and her Alf. They had many questions about cirrhosis and what comes next. They're very interested in seeing a specialist down in the [facility] area because of the patient's 's job. They have seen a equine manager in [place] but would prefer to establish care at a location much more convenient for them. I did talk to the transfer line and scheduling folks for the liver specialists. She has an appointment scheduled for 3 weeks from now to see Dr. Camilo in [place]. At the time of hospital discharge I did increase her diuretics to help with the edema and also added spironolactone. Her liver disease seems to be fairly well compensated at this time but she does have I suspect more ascites than what we' re able to see with the ultrasound today. This is a relatively new diagnosis for her she would benefit from close followup. Her current MELD/UNOS score is 14. - Patient Instructions Diet: Low Sodium Fluid Restriction: 1500 mL Activity: As Tolerated Showering/Bathing: May Shower Notify Provider of: Fever, Increased Pain, Nausea and/or Vomiting Other/Special Instructions: 1. You Were in the hospital for management of hepatic encephalopathy. Excess ammonia built up in your blood stream because your liver is not functioning efficiently as a result of the cirrhosis. Your ammonia levels have improved using lactulose. I recommend that you continue to take this medication 3 times daily. The goal is for you to have 2-3 soft bowel movements each day. If you have more than 3 bowel movements each day you should decrease the frequency to twice daily. Becasue of the swelling in your legs and abdomen I recommend that we increase your furosemide to 40 mg twice daily and also start you on spironolactone 50 mg once daily in the morning. These are diuretic medications that help your kidneys get rid of extra fluid. 2. Please followup with the [facility] liver specialist Dr. Camilo as scheduled. 3. Please seek medical attention if you develop fever greater than 101, have severe abdominal pain, worsening of the swelling in your legs or worsening confusion. - Discharge Plan Prescriptions/Med Rec: Furosemide 40 mg PO BID #60 tablet Lactulose 10 gm PO TID #1350 ml Spironolactone 50 mg PO DAILY #30 tablet Home Medications: Home Meds Amitriptyline [Elavil] 25 mg PO BEDTIME 01/21/15 [History] Ascorbic Acid 500 mg PO DAILY 01/21/15 [History] Calcium Carbonate [Calcium] 500 mg PO DAILY 01/21/15 [History] Cetirizine [ZyrTEC] 10 mg PO DAILY PRN 01/21/15 [History] Cholecalciferol (Vitamin D3) [Decara] 50,000 unit PO WEEKLY 01/21/15 [History] Cholecalciferol (Vitamin D3) [Vitamin D3] 5,000 unit PO DAILY 01/21/15 [History] Cyanocobalamin (Vitamin B-12) [Cyanocobalamin Injection] 1,000 mcg IJ Q30D 01/21 [History] Ferrous Sulfate 325 mg PO WITHBREAKFAST 01/21/15 [History] Folic Acid 1 mg PO DAILY 01/21/15 [History] Ibuprofen 600 mg PO Q6H PRN 01/21/15 [History] Loperamide [Imodium AD] 2 mg PO QID PRN 01/21/15 [History] Omeprazole [Prilosec] 40 mg PO DAILY 01/21/15 [History] Sertraline HCl 100 mg PO DAILY 01/21/15 [History] rOPINIRole HCl [Requip] 1 mg PO BID 01/21/15 [History] Multivitamin [Multiple Vitamins] 1 tab PO DAILY 01/24/15 [History] Dulaglutide [Trulicity] 0.75 mg SQ WEEKLY 12/16/15 [History] Potassium Chloride [Klor-Con 10] 10 meq PO DAILY 07/01/16 [History] Furosemide 40 mg PO BID #60 tablet 07/02/16 [Rx] Lactulose 10 gm PO TID #1350 ml 07/02/16 [Rx] Spironolactone 50 mg PO DAILY #30 tablet 07/02/16 [Rx] Patient Handouts: Hepatic Encephalopathy Referrals: Edwar Patrick Sr, MD [Primary Care Provider] - (1-2 weeks - followup hospital stay for hepatic encephalopathy) - Discharge Summary/Plan Comment DC Time >30 min.: No (25) - Patient Data Vitals - Most Recent: Last Vital Signs Temp 35.7 C 07/02/16 11:00 Pulse 91 07/02/16 11:00 Resp 18 07/02/16 11:00 BP 140/76 07/02/16 11:00 Pulse Ox 97 07/02/16 11:00 Weight - Most Recent: 132.4 kg I&O - Last 24 hours: Intake & Output 07/01/16 07/02/16 07/02/16 22:59 06:59 14:59 Intake Total 360 Output Total 1600 210 Balance -1600 150 Lab Results - Last 24 hrs: Laboratory Results - last 24 hr 07/02/16 07/02/16 07/02/16 Range/Units 05:49 05:49 05:49 WBC 6.4 (4.5-11.0) K/uL RBC 3.74 (3.30-5.50) M/uL Hgb 10.3 L (12.0-15.0) g/dL Hct 32.0 L (36.0-48.0) % MCV 86 (80-98) fL MCH 28 (27-31) pg MCHC 32 (32-36) % Plt Count 71 L (150-400) K/uL Neut % (Auto) 68 H (36-66) % Lymph % (Auto) 21 L (24-44) % [place] % (Auto) 8 H (2-6) % Eos % (Auto) 2 (2-4) % Baso % (Auto) 1 (0-1) % PT 15.3 H (9.5-12.0) sec INR 1.43 H (0.80-1.20) Sodium 142 (140-148) mmol/L Potassium 3.3 L (3.6-5.2) mmol/L Chloride 111 H (100-108) mmol/L Carbon Dioxide 23 (21-32) mmol/L Anion Gap 11.3 (5.0-14.0) mmol/L BUN 11 (7-18) mg/dL Creatinine 0.9 (0.6-1.0) mg/dL Est Cr Clr Drug Dosing 57.05 mL/min Estimated GFR (MDRD) > 60 (>60) Glucose 92 (74-106) mg/dL Calcium 8.0 L (8.5-10.1) mg/dL Ammonia (11-32) mmol/L 07/02/16 Range/Units 05:49 WBC (4.5-11.0) K/uL RBC (3.30-5.50) M/uL Hgb (12.0-15.0) g/dL Hct (36.0-48.0) % MCV (80-98) fL MCH (27-31) pg MCHC (32-36) % Plt Count (150-400) K/uL Neut % (Auto) (36-66) % Lymph % (Auto) (24-44) % [place] % (Auto) (2-6) % Eos % (Auto) (2-4) % Baso % (Auto) (0-1) % PT (9.5-12.0) sec INR (0.80-1.20) Sodium (140-148) mmol/L Potassium (3.6-5.2) mmol/L Chloride (100-108) mmol/L Carbon Dioxide (21-32) mmol/L Anion Gap (5.0-14.0) mmol/L BUN (7-18) mg/dL Creatinine (0.6-1.0) mg/dL Est Cr Clr Drug Dosing mL/min Estimated GFR (MDRD) (>60) Glucose (74-106) mg/dL Calcium (8.5-10.1) mg/dL Ammonia 45 H (11-32) mmol/L Med Orders - Current: Current Medications Albuterol (Proventil Neb Soln) 2.5 mg NEB Q4H PRN PRN Reason: Shortness Of Breath/wheezing Last Admin: 07/01/16 19:31 Dose: 2.5 mg Amitriptyline HCl (Elavil) 25 mg PO BEDTIME [facility] Last Admin: 07/02/16 00:08 Dose: 25 mg Furosemide (Lasix) 20 mg PO BIDDIURETIC TERRA Last Admin: 07/02/16 10:29 Dose: 20 mg Ibuprofen (Motrin) 400 mg PO Q6H PRN PRN Reason: Pain Last Admin: 07/02/16 00:03 Dose: 400 mg Lactulose (Chronulac) 10 gm PO QID TERRA Last Admin: 07/02/16 10:30 Dose: 10 gm Ondansetron HCl (Zofran) 4 mg IV Q4H PRN PRN Reason: Nausea/Vomiting Last Admin: 07/01/16 10:50 Dose: 4 mg Pantoprazole Sodium (Protonix) 40 mg PO ACBREAKFAST [facility] Last Admin: 07/02/16 08:18 Dose: 40 mg Sertraline HCl (Zoloft) 100 mg PO DAILY [facility] Last Admin: 07/02/16 10:29 Dose: 100 mg Sodium Chloride (Saline Flush) 10 ml FLUSH ASDIRECTED PRN PRN Reason: Keep Vein Open Discontinued Medications Enoxaparin Sodium (Lovenox) 40 mg SUBCUT DAILY [facility] Last Admin: 07/02/16 10:47 Dose: Not Given Furosemide (Lasix) 20 mg IVPUSH ONETIME ONE Stop: 07/01/16 21:18 Last Admin: 07/01/16 22:01 Dose: 20 mg Sodium Chloride (Normal Saline) 1,000 mls @ 999 mls/hr IV ASDIRECTED [facility] Last Admin: 06/30/16 20:38 Dose: 999 mls/hr Sodium Chloride (Normal Saline) 1,000 mls @ 150 mls/hr IV ASDIRECTED TERRA Last Admin: 06/30/16 21:45 Dose: 150 mls/hr Sodium Chloride (Normal Saline) 1,000 mls @ 125 mls/hr IV ASDIRECTED TERRA Last Admin: 07/01/16 05:11 Dose: 125 mls/hr Lactulose (Chronulac) 30 gm PO ONETIME ONE Stop: 06/30/16 22:18 Last Admin: 06/30/16 22:52 Dose: 30 gm Lactulose (Chronulac) Confirm Administered Dose 10 gm .ROUTE .STK-MED ONE Stop: 06/30/16 22:26 Last Admin: 06/30/16 22:53 Dose: Not Given Lactulose (Chronulac) 20 gm PO Q4H [facility] Last Admin: 07/01/16 02:53 Dose: 20 gm Lactulose (Chronulac) 20 gm PO Q4H [facility] Last Admin: 07/01/16 07:24 Dose: 20 gm Potassium Chloride (Klor-Con M20) 40 meq PO ONETIME ONE Stop: 06/30/16 22:49 Last Admin: 06/30/16 23:15 Dose: 40 meq Potassium Chloride (Klor-Con M20) 40 meq PO ONETIME ONE Stop: 07/02/16 09:31 Last Admin: 07/02/16 10:29 Dose: 40 meq Ropinirole HCl (Requip) 1 mg PO BID [facility] Last Admin: 07/01/16 20:09 Dose: 1 mg Ropinirole HCl (Requip) 1 mg PO BEDTIME ONE Stop: 07/01/16 21:22 Last Admin: 07/01/16 23:27 Dose: Not Given Ropinirole HCl (Requip) 2 mg PO BEDTIME TER[facility] Ropinirole HCl (Requip) 1 mg PO ONETIME ONE Stop: 07/02/16 12:31 Last Admin: 07/02/16 12:18 Dose: 1 mg Sodium Chloride (Saline Flush) 10 ml FLUSH ASDIRECTED PRN PRN Reason: Keep Vein Open Last Admin: 06/30/16 20:38 Dose: 10 ml Sodium Polystyrene Sulfonate (Kayexalate) Confirm Administered Dose 15 gm .ROUTE .STK-MED ONE Stop: 06/30/16 22:22 Last Admin: 06/30/16 22:53 Dose: Not Given *Q Meaningful Use (DIS) - VTE *Q VTE Criteria *Q: - Stroke *Q Stroke Criteria *Q: - AMI *Q AMI Criteria *Q:
[2016-07-02] MEDS ORDERED: rOPINIRole 0.5 MG Tab PO SCH (21:00)
== END 2016-07-02 14:40 | disposition home or self-care (01) | DRG 442 ==
LOC: JP.ED 16:55 → JP.ICU 22:47 → JP.MS 07-01 10:41
PROVIDERS: ADMIT Hospitalist; ATTEND Internal Medicine
DX: K72.90 Hepatic failure, unspecified without coma (principal); Z68.42 Body mass index [BMI] 45.0-49.9, adult; R18.8 Other ascites; K75.81 Nonalcoholic steatohepatitis (NASH); E66.01 Morbid (severe) obesity due to excess calories; Z87.891 Personal history of nicotine dependence; R14.0 Abdominal distension (gaseous); Z91.030 Bee allergy status; Z88.5 Allergy status to narcotic agent; Z88.8 Allergy status to other drugs, medicaments and biological substances
CPT/HCPCS: 36415; 70450; 71010; 71010-26; 76705; 76705-26; 80048; 80053; 80305; 81001; 82140; 83605; 85025; 85610; 85730; 93005; 96360; 96361; 99285; 99285-25; A9270-GY; J1940; J2405; J7040; J7050

== ENCOUNTER 2016-07-22 07:20 | Emergency (ER) | payer MEDICAID ==
[2016-07-22] MEDS ORDERED: Sodium Chloride 0.9% 10 ML Syringe FLUSH PRN ×2 (08:09→10:30)
[2016-07-22] MEDS ORDERED: Sodium Chloride 0.9% 1,000 ML IV SCH ×2 (08:15→12:00)
[2016-07-22] MEDS ORDERED: Ondansetron 4 MG/2 ML SDV IVPUSH ONE (08:18)
[2016-07-22] MEDS ORDERED: HYDROmorphone 1 MG/ML Syringe IVPUSH ONE (08:18)
--- NOTE | 2016-07-22 08:26 | EDM.PDOC ---
ED HPI GENERAL MEDICAL PROBLEM - General Chief Complaint: Abdominal Pain Stated Complaint: STAGE 4 LIVER CIRRHOSIS-NOT QUITE W/IT-YELLOW Time Seen by Provider: 07/22/16 08:07 Source of Information: Reports: Patient, Old Records History Limitations: Reports: Altered Mental Status - History of Present Illness INITIAL COMMENTS - FREE TEXT/NARRATIVE: 56-year-old female presents emergency department today complaint of abdominal pain and fever she has a known history of end-stage liver disease cirrhosis secondary to [place], she was recently admitted to the hospital about one month ago for hepatic encephalopathy. For this particular event she states had increased abdominal pain and distention over the last 24 hours fever nausea and vomiting. She states he has been taking her medications does have shortness of breath no chest pain no problems with bowel movements Bilateral Abdomen Pain Score (Numeric/FACES): 8 - Related Data Allergies Allergy/AdvReac Type Severity Reaction Status Date / Time venom-honey bee Allergy Swelling Verified 07/22/16 07:29 [bee venom (honey bee)] gabapentin AdvReac Other Verified 07/22/16 07:29 oxycodone HCl [From Percocet] AdvReac Other Verified 07/22/16 07:29 tramadol AdvReac Other Verified 07/22/16 07:29 Deerfly Allergy Swelling Uncoded 07/22/16 07:29 Horsefly Allergy Swelling Uncoded 07/22/16 07:29 Home Meds: Home Meds Amitriptyline [Elavil] 25 mg PO BEDTIME 01/21/15 [History] Ascorbic Acid 500 mg PO DAILY 01/21/15 [History] Calcium Carbonate [Calcium] 500 mg PO DAILY 01/21/15 [History] Cholecalciferol (Vitamin D3) [Decara] 50,000 unit PO WEEKLY 01/21/15 [History] Cholecalciferol (Vitamin D3) [Vitamin D3] 5,000 unit PO DAILY 01/21/15 [History] Ferrous Sulfate 325 mg PO WITHBREAKFAST 01/21/15 [History] Folic Acid 1 mg PO DAILY 01/21/15 [History] Ibuprofen 800 mg PO Q6H PRN 01/21/15 [History] Loperamide [Imodium AD] 2 mg PO QID PRN 01/21/15 [History] Omeprazole [Prilosec] 40 mg PO DAILY 01/21/15 [History] Sertraline HCl 100 mg PO DAILY 01/21/15 [History] rOPINIRole HCl [Requip] 1 mg PO BID 01/21/15 [History] Multivitamin [Multiple Vitamins] 1 tab PO DAILY 01/24/15 [History] Potassium Chloride [Klor-Con 10] 10 meq PO DAILY 07/01/16 [History] Furosemide 40 mg PO BID #60 tablet 07/02/16 [Rx] Lactulose 10 gm PO TID #1350 ml 07/02/16 [Rx] Spironolactone 50 mg PO DAILY #30 tablet 07/02/16 [Rx] Past Medical History Other HEENT History: seasonal allergies Gastrointestinal History: Reports: Cirrhosis, Other (See Below) Other Gastrointestinal History: incisional hernia, stage 4 Genitourinary History: Reports: UTI, Recurrent [employer]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: Musculoskeletal History: Reports: Osteoporosis Other Musculoskeletal History: right knee pain Neurological History: Reports: Head Trauma, Seizure Other Neuro History: 1 seizure "medication related" Psychiatric History: Reports: Addiction, Depression Endocrine/Metabolic History: Reports: Obesity/BMI 30+ Other Endocrine/Metabolic History: borderline DM Hematologic History: Reports: Blood Transfusion(s) - Infectious Disease History Infectious Disease History: Reports: Chicken Pox, Measles, Mumps - Past Surgical History GI Surgical History: Reports: Bariatric Procedure Female Surgical History: Reports: Hysterectomy Musculoskeletal Surgical History: Reports: Knee Replacement Social & Family History - Tobacco Use Smoking Status *Q: Never Smoker Years of Tobacco use: 2 Packs/Tins Daily: 0 Used Tobacco, but Quit: Yes Month Tobacco Last Used: o Second Hand Smoke Exposure: No - Caffeine Use Caffeine Use: Reports: None - Recreational Drug Use Recreational Drug Use: No ED ROS GENERAL - Review of Systems Review Of Systems: See Below Constitutional: Reports: Fever, Weakness, Fatigue, Weight Gain. Denies: Chills HEENT: Reports: No Symptoms Respiratory: Reports: Shortness of Breath Cardiovascular: Reports: Dyspnea on Exertion. Denies: Chest Pain GI/Abdominal: Reports: Abdominal Pain, Flatus, Nausea, Vomiting. Denies: Constipation, Diarrhea : Reports: No Symptoms Musculoskeletal: Reports: No Symptoms Skin: Reports: No Symptoms Neurological: Reports: No Symptoms ED EXAM, GI/ABD - Physical Exam Exam: See Below Text/Narrative:: General: Female confused difficulty recalling events but not in any distress, alert HEENT: head is atraumatic normocephalic, eyes pupils equal round reactive to light, sclera faintly yellow no conjunctivitis appreciated. Ears tympanic membranes clear and thompson landmarks and light reflex are present bilaterally canals are clear. Nose no septal deviation, nares are clear, no blood present. Mouth mucosa is dry and pink no erythema or exudate noted in soft palate, tongue is midline uvula is midline, dentures in place. Neck: Supple no thyromegaly no tracheal deviation. Nodes: Cervical nodes subclavicular nodes nontender no palpable lymphadenopathy noted. Lungs: clear to auscultation bilaterally with symmetrical respirations, no adventitious noise appreciated. CV: Regular rate and rhythm S1 and S2 appreciated no murmurs rubs or gallops noted. Abdomen: Soft, generalized tenderness to palpation, obese, no palpable masses or organomegaly appreciated, positive for distention no guarding bowel sounds are present, . Neuro: Cranial nerves II through XII grossly intact Skin: Warm and dry, intact Extremities: No lower extremity edema appreciated, pedal pulse is +2. Course - Vital Signs Last Recorded V/S: Last Vital Signs Temp 100.4 F 07/22/16 07:41 Pulse 115 H 07/22/16 09:41 Resp 28 H 07/22/16 09:41 BP 84/46 L 07/22/16 09:41 Pulse Ox 92 L 07/22/16 09:41 - Orders/Labs/Meds Orders: Active Orders 24 hr Category Date Time Status Hernandez Catheter Insertion [Insert Urinary Catheter] [OM. Care 07/22/16 09:00 Ordered PC] Q24H Peripheral IV Care [RC] . DIRECTED Care 07/22/16 08:09 Active Urinary Catheter Assessment [RC] ASDIRECTED Care 07/22/16 08:52 Active Abdomen Pelvis wo Cont [CT] Stat Exams 07/22/16 08:19 Taken Chest 1V Frontal [CR] Urgent Exams 07/22/16 08:28 Taken CULTURE BLOOD [BC] Urgent Lab 07/22/16 08:02 Received CULTURE BLOOD [BC] Urgent Lab 07/22/16 08:15 Received UA W/MICROSCOPIC [URIN] Urgent Lab 07/22/16 08:09 Uncollected Lactated Ringers [Ringers, Lactated] 1,000 ml Med 07/22/16 10:03 Active IV BOLUS Sodium Chloride 0.9% [Normal Saline] 1,000 ml Med 07/22/16 08:15 Active IV ASDIRECTED Sodium Chloride 0.9% [Saline Flush] Med 07/22/16 08:09 Active 10 ml FLUSH ASDIRECTED PRN Blood Culture x2 Reflex Set [OM.PC] Urgent Oth 07/22/16 08:09 Ordered Peripheral IV Insertion Adult [OM.PC] Urgent Oth 07/22/16 08:09 Ordered Medication Orders Sodium Chloride (Normal Saline) 1,000 mls @ 500 mls/hr IV ASDIRECTED TERRA Last Infusion: 07/22/16 09:49 Dose: 999 mls/hr Admin: 07/22/16 08:18 Dose: 500 mls/hr Lactated Ringer's (Ringers, Lactated) 1,000 mls @ 999 mls/hr IV BOLUS ONE Stop: 07/22/16 11:03 Last Admin: 07/22/16 10:05 Dose: 999 mls/hr Sodium Chloride (Saline Flush) 10 ml FLUSH ASDIRECTED PRN PRN Reason: Keep Vein Open Last Admin: 07/22/16 08:18 Dose: 10 ml Labs: Laboratory Tests 07/22/16 07/22/16 07/22/16 Range/Units 08:16 08:16 08:16 WBC 9.3 (4.5-11.0) K/uL RBC 4.27 (3.30-5.50) M/uL Hgb 11.9 L (12.0-15.0) g/dL Hct 35.8 L (36.0-48.0) % MCV 84 (80-98) fL MCH 28 (27-31) pg MCHC 33 (32-36) % Plt Count 60 L (150-400) K/uL Neut % (Auto) 91 H (36-66) % Lymph % (Auto) 4 L (24-44) % [place] % (Auto) 4 (2-6) % Eos % (Auto) 0 L (2-4) % Baso % (Auto) 0 (0-1) % PT 17.0 H (9.5-12.0) sec INR 1.58 H (0.80-1.20) APTT 32.9 (27.0-36.0) sec Sodium (140-148) mmol/L Potassium (3.6-5.2) mmol/L Chloride (100-108) mmol/L Carbon Dioxide (21-32) mmol/L Anion Gap (5.0-14.0) mmol/L BUN (7-18) mg/dL Creatinine (0.6-1.0) mg/dL Est Cr Clr Drug Dosing mL/min Estimated GFR (MDRD) (>60) Glucose (74-106) mg/dL Lactic Acid (0.4-2.0) mmol/L Calcium (8.5-10.1) mg/dL Total Bilirubin (0.2-1.0) mg/dL AST (15-37) U/L ALT (12-78) U/L Alkaline Phosphatase (46-116) U/L Ammonia 119 H (11-32) mmol/L Troponin I (0.000-0.056) ng/mL [id number] Pept (5-125) pg/mL Total Protein (6.4-8.2) g/dL Albumin (3.4-5.0) g/dL Globulin (2.3-3.5) g/dL Albumin/Globulin Ratio (1.2-2.2) Lipase (73-393) U/L 07/22/16 07/22/16 07/22/16 Range/Units 08:16 08:16 08:18 WBC (4.5-11.0) K/uL RBC (3.30-5.50) M/uL Hgb (12.0-15.0) g/dL Hct (36.0-48.0) % MCV (80-98) fL MCH (27-31) pg MCHC (32-36) % Plt Count (150-400) K/uL Neut % (Auto) (36-66) % Lymph % (Auto) (24-44) % [place] % (Auto) (2-6) % Eos % (Auto) (2-4) % Baso % (Auto) (0-1) % PT (9.5-12.0) sec INR (0.80-1.20) APTT (27.0-36.0) sec Sodium 139 L (140-148) mmol/L Potassium 3.4 L (3.6-5.2) mmol/L Chloride 106 (100-108) mmol/L Carbon Dioxide 19 L (21-32) mmol/L Anion Gap 17.4 H (5.0-14.0) mmol/L BUN 13 (7-18) mg/dL Creatinine 1.3 H (0.6-1.0) mg/dL Est Cr Clr Drug Dosing 39.50 mL/min Estimated GFR (MDRD) 42 L (>60) Glucose 102 (74-106) mg/dL Lactic Acid 4.6 H (0.4-2.0) mmol/L Calcium 7.8 L (8.5-10.1) mg/dL Total Bilirubin 3.0 H (0.2-1.0) mg/dL AST 85 H (15-37) U/L ALT 45 (12-78) U/L Alkaline Phosphatase 205 H (46-116) U/L Ammonia (11-32) mmol/L Troponin I 0.021 (0.000-0.056) ng/mL Yir-[id number]-Vksudbybocn Pept (5-125) pg/mL Total Protein 6.7 (6.4-8.2) g/dL Albumin 2.7 L (3.4-5.0) g/dL Globulin 4.0 H (2.3-3.5) g/dL Albumin/Globulin Ratio 0.7 L (1.2-2.2) Lipase 72 L (73-393) U/L 07/22/16 Range/Units 08:18 WBC (4.5-11.0) K/uL RBC (3.30-5.50) M/uL Hgb (12.0-15.0) g/dL Hct (36.0-48.0) % MCV (80-98) fL MCH (27-31) pg MCHC (32-36) % Plt Count (150-400) K/uL Neut % (Auto) (36-66) % Lymph % (Auto) (24-44) % [place] % (Auto) (2-6) % Eos % (Auto) (2-4) % Baso % (Auto) (0-1) % PT (9.5-12.0) sec INR (0.80-1.20) APTT (27.0-36.0) sec Sodium (140-148) mmol/L Potassium (3.6-5.2) mmol/L Chloride (100-108) mmol/L Carbon Dioxide (21-32) mmol/L Anion Gap (5.0-14.0) mmol/L BUN (7-18) mg/dL Creatinine (0.6-1.0) mg/dL Est Cr Clr Drug Dosing mL/min Estimated GFR (MDRD) (>60) Glucose (74-106) mg/dL Lactic Acid (0.4-2.0) mmol/L Calcium (8.5-10.1) mg/dL Total Bilirubin (0.2-1.0) mg/dL AST (15-37) U/L ALT (12-78) U/L Alkaline Phosphatase (46-116) U/L Ammonia (11-32) mmol/L Troponin I (0.000-0.056) ng/mL [id number]-[id number] Pept 353 H (5-125) pg/mL Total Protein (6.4-8.2) g/dL Albumin (3.4-5.0) g/dL Globulin (2.3-3.5) g/dL Albumin/Globulin Ratio (1.2-2.2) Lipase (73-393) U/L Meds: Medications Generic Name Dose Route Start Last Admin Trade Name Freq PRN Reason Stop Dose Admin Sodium Chloride 1,000 mls @ 500 mls/hr 07/22/16 08:15 07/22/16 09:49 Normal Saline IV 999 mls/hr ASDIRECTED TERRA Infusion Lactated Ringer's 1,000 mls @ 999 mls/hr 07/22/16 10:03 07/22/16 10:05 Ringers, Lactated IV 07/22/16 11:03 999 mls/hr BOLUS ONE Administration Sodium Chloride 10 ml 07/22/16 08:09 07/22/16 08:18 Saline Flush FLUSH 10 ml ASDIRECTED PRN Administration Keep Vein Open Discontinued Medications Generic Name Dose Route Start Last Admin Trade Name Freq PRN Reason Stop Dose Admin Hydromorphone HCl 1 mg 07/22/16 08:18 07/22/16 08:32 Dilaudid IVPUSH 07/22/16 08:19 0.5 mg ONETIME ONE Administration Cefotaxime Sodium 2,000 mg/ 50 mls @ 999 mls/hr 07/22/16 10:21 Sodium Chloride IV 07/22/16 10:23 ONETIME ONE Ondansetron HCl 4 mg 07/22/16 08:18 07/22/16 08:25 Zofran IVPUSH 07/22/16 08:19 4 mg ONETIME ONE Administration Departure - Departure Time of Disposition: 10:34 Disposition: Admitted As Inpatient 65 Condition: poor Clinical Impression: Hepatic encephalopathy, Liver cirrhosis secondary to [place] (nonalcoholic steatohepatitis) Sepsis Qualifiers: Sepsis type: sepsis due to unspecified organism Qualified Code(s): A41.9 - Sepsis, unspecified organism - Discharge Information Forms: ED Department Discharge - My Orders Last 24 Hours: My Active Orders 07/22/16 08:02 CULTURE BLOOD [BC] Urgent 07/22/16 08:09 Peripheral IV Care [RC] . DIRECTED UA W/MICROSCOPIC [URIN] Urgent Sodium Chloride 0.9% [Saline Flush] 10 ml FLUSH ASDIRECTED PRN Blood Culture x2 Reflex Set [OM.PC] Urgent Peripheral IV Insertion Adult [OM.PC] Urgent 07/22/16 08:15 CULTURE BLOOD [BC] Urgent Sodium Chloride 0.9% [Normal Saline] 1,000 ml IV ASDIRECTED 07/22/16 08:19 Abdomen Pelvis wo Cont [CT] Stat 07/22/16 08:28 Chest 1V Frontal [CR] Urgent 07/22/16 08:52 Urinary Catheter Assessment [RC] ASDIRECTED 07/22/16 09:00 Hernandez Catheter Insertion [Insert Urinary Catheter] [OM.PC] Q24H 07/22/16 10:03 Lactated Ringers [Ringers, Lactated] 1,000 ml IV BOLUS - Assessment/Plan Last 24 Hours: My Active Orders 07/22/16 08:02 CULTURE BLOOD [BC] Urgent 07/22/16 08:09 Peripheral IV Care [RC] . DIRECTED UA W/MICROSCOPIC [URIN] Urgent Sodium Chloride 0.9% [Saline Flush] 10 ml FLUSH ASDIRECTED PRN Blood Culture x2 Reflex Set [OM.PC] Urgent Peripheral IV Insertion Adult [OM.PC] Urgent 07/22/16 08:15 CULTURE BLOOD [BC] Urgent Sodium Chloride 0.9% [Normal Saline] 1,000 ml IV ASDIRECTED 07/22/16 08:19 Abdomen Pelvis wo Cont [CT] Stat 07/22/16 08:28 Chest 1V Frontal [CR] Urgent 07/22/16 08:52 Urinary Catheter Assessment [RC] ASDIRECTED 07/22/16 09:00 Hernandez Catheter Insertion [Insert Urinary Catheter] [OM.PC] Q24H 07/22/16 10:03 Lactated Ringers [Ringers, Lactated] 1,000 ml IV BOLUS Plan: Assessment Acuity = acute Site and laterality = abdominal pain complicated patient with known history of stage IV liver cirrhosis secondary to [place], with hepatic encephalopathy and sepsis Etiology = suspicious for bacterial cause with elevation of ammonia level Manifestations = fever, confusion, tachycardia, hypotension Location of injury = home Lab values = CBC within normal limits, INR elevated 1.58, sodium low at 139 consistent hyponatremia potassium low at 3.4 consistent hypokalemia creatinine elevated 1.3 consistent chronic renal failure stage GIIIB, lactic acid markedly elevated at 4.6 consistent lactic acidosis AST elevated 85 consistent with elevated liver enzymes, alkaline phosphatase elevated 205 ammonia level at 119 consistent with hyperammoniaemia, albumin low at 2.7 consistent hypoalbuminemia , CT scan of the abdomen shows small volume of ascites without localized collection splenomegaly concern for development of portal hypertension mildly dilated small bowel loops without discrete transition point. Chest x-ray I did review films myself I cannot appreciate any acute process, the official read from radiology is pending Plan Called and discussed the case with her primary care physician Dr. Patrick he agreed to come and evaluate her in the ED for admission, antibiotics of cefotaxime have been initiated blood cultures are pending urinalysis is also pending Patient was in agreement with the plan all questions were answered, they were instructed to return to the emergency department or call for worsening symptoms. This note was dictated using [employer] voice recognition software please call with any questions.
[2016-07-22] MEDS ORDERED: Lactated Ringers 1,000 ML IV ONE ×2 (10:03→12:00)
[2016-07-22] MEDS ORDERED: CEFOTAXIME IV ONE (10:21)
[2016-07-22] MEDS ORDERED: SODIUM CHLORIDE 0.9% IV ONE (10:21)
[2016-07-22] MEDS ORDERED: Acetaminophen 325 MG Tab PO ONE (10:56)
[2016-07-22] MEDS ORDERED: Norepinephrine 4 MG in Dextrose 5% in Water 246 ML IV SCH ×4 (11:00→11:15)
[2016-07-22] MEDS ORDERED: Vasopressin 100 UNITS in Dextrose 5% in Water 250 ML IV SCH ×2 (13:00)
[2016-07-22 13:58] VITALS: BP 100/60
--- NOTE | 2016-07-22 14:32 | PCM.HP ---
H&P History of Present Illness - General Date of Service: 07/22/16 Source of Information: Patient, Family, Provider History Limitations: Reports: No Limitations - History of Present Illness Initial Comments - Free Text/Narative: I was called to come see Shira for depression. Nataly has a history of liver failure And was recently in the hospital and was discharged home. The said that she was feeling weak last night and he wanted to bring him to the hospital and she refused finally this morning she agreed to come in. She was running a low-grade fever but did not take her temperature. She is increasingly weak and then became confused. She does have a significant history of liver failure secondary to alcoholism in the past she is not been drinking recently. I recently sent her to 4 ago to evaluate her low platelets and was seen by an oncologist. Bilateral Abdomen Pain Score (Numeric/FACES): 8 - Related Data Allergies/Adverse Reactions: Allergies Allergy/AdvReac Type Severity Reaction Status Date / Time venom-honey bee Allergy Swelling Verified 07/22/16 07:29 [bee venom (honey bee)] gabapentin AdvReac Other Verified 07/22/16 07:29 oxycodone HCl [From Percocet] AdvReac Other Verified 07/22/16 07:29 tramadol AdvReac Other Verified 07/22/16 07:29 Deerfly Allergy Swelling Uncoded 07/22/16 07:29 Horsefly Allergy Swelling Uncoded 07/22/16 07:29 Home Medications: Home Meds Amitriptyline [Elavil] 25 mg PO BEDTIME 01/21/15 [History] Ascorbic Acid 500 mg PO DAILY 01/21/15 [History] Calcium Carbonate [Calcium] 500 mg PO DAILY 01/21/15 [History] Cholecalciferol (Vitamin D3) [Decara] 50,000 unit PO WEEKLY 01/21/15 [History] Cholecalciferol (Vitamin D3) [Vitamin D3] 5,000 unit PO DAILY 01/21/15 [History] Ferrous Sulfate 325 mg PO WITHBREAKFAST 01/21/15 [History] Folic Acid 1 mg PO DAILY 01/21/15 [History] Ibuprofen 800 mg PO Q6H PRN 01/21/15 [History] Loperamide [Imodium AD] 2 mg PO QID PRN 01/21/15 [History] Omeprazole [Prilosec] 40 mg PO DAILY 01/21/15 [History] Sertraline HCl 100 mg PO DAILY 01/21/15 [History] rOPINIRole HCl [Requip] 1 mg PO BID 01/21/15 [History] Multivitamin [Multiple Vitamins] 1 tab PO DAILY 01/24/15 [History] Potassium Chloride [Klor-Con 10] 10 meq PO DAILY 07/01/16 [History] Furosemide 40 mg PO BID #60 tablet 07/02/16 [Rx] Lactulose 10 gm PO TID #1350 ml 07/02/16 [Rx] Spironolactone 50 mg PO DAILY #30 tablet 07/02/16 [Rx] Past Medical History Other HEENT History: seasonal allergies Gastrointestinal History: Reports: Cirrhosis, Other (See Below) Other Gastrointestinal History: incisional hernia, stage 4 Genitourinary History: Reports: UTI, Recurrent [employer] History: Reports: Musculoskeletal History: Reports: Osteoporosis Other Musculoskeletal History: right knee pain Neurological History: Reports: Head Trauma, Seizure Other Neuro History: 1 seizure "medication related" Psychiatric History: Reports: Addiction, Depression Endocrine/Metabolic History: Reports: Obesity/BMI 30+ Other Endocrine/Metabolic History: borderline DM Hematologic History: Reports: Blood Transfusion(s) - Infectious Disease History Infectious Disease History: Reports: Chicken Pox, Measles, Mumps - Past Surgical History GI Surgical History: Reports: Bariatric Procedure Female Surgical History: Reports: Hysterectomy Musculoskeletal Surgical History: Reports: Knee Replacement Social & Family History - Tobacco Use Smoking Status *Q: Never Smoker Years of Tobacco use: 2 Packs/Tins Daily: 0 Used Tobacco, but Quit: Yes Month Tobacco Last Used: o Second Hand Smoke Exposure: No - Caffeine Use Caffeine Use: Reports: None - Recreational Drug Use Recreational Drug Use: No H&P Review of Systems - Review of Systems: Review Of Systems: See Below General: Reports: Fever Pulmonary: Reports: Shortness of Breath Cardiovascular: Reports: Dyspnea on Exertion Gastrointestinal: Reports: Abdominal Pain Musculoskeletal: Reports: Muscle Pain Psychiatric: Reports: Confusion Neurological: Reports: Confusion, Gait Disturbance Exam - Exam Exam: See Below - Vital Signs Vital Signs: Last Vital Signs Temp 99.0 F 07/22/16 11:22 Pulse 113 H 07/22/16 13:17 Resp 20 07/22/16 13:17 BP 100/60 07/22/16 13:17 Pulse Ox 97 07/22/16 13:17 Weight: 244 lb - Exam General: Oriented, Moderate Distress HEENT: PERRLA, Hearing Intact, Mucosa Moist & [place], Nares Patent, Normal Nasal Septum, Posterior Pharynx Clear, Conjunctiva Clear, EOMI, EACs Clear, TMs Clear Neck: Supple, Trachea Midline, 2 Lungs: Clear to Auscultation, Normal Respiratory Effort Cardiovascular: Regular Rate, Regular Rhythm Abdomen: Distention, Guarding, Hyperactive Bowel Sounds Extremities: Edema Peripheral Pulses: 1+: Radial (L), Radial (R) Psychiatric: Depressed - Patient Data Lab Results last 24 hrs: Laboratory Results - last 24 hr 07/22/16 07/22/16 07/22/16 Range/Units 08:16 08:16 08:16 WBC 9.3 (4.5-11.0) K/uL RBC 4.27 (3.30-5.50) M/uL Hgb 11.9 L (12.0-15.0) g/dL Hct 35.8 L (36.0-48.0) % MCV 84 (80-98) fL MCH 28 (27-31) pg MCHC 33 (32-36) % Plt Count 60 L (150-400) K/uL Neut % (Auto) 91 H (36-66) % Lymph % (Auto) 4 L (24-44) % [place] % (Auto) 4 (2-6) % Eos % (Auto) 0 L (2-4) % Baso % (Auto) 0 (0-1) % PT 17.0 H (9.5-12.0) sec INR 1.58 H (0.80-1.20) APTT 32.9 (27.0-36.0) sec Sodium (140-148) mmol/L Potassium (3.6-5.2) mmol/L Chloride (100-108) mmol/L Carbon Dioxide (21-32) mmol/L Anion Gap (5.0-14.0) mmol/L BUN (7-18) mg/dL Creatinine (0.6-1.0) mg/dL Est Cr Clr Drug Dosing mL/min Estimated GFR (MDRD) (>60) Glucose (74-106) mg/dL Lactic Acid (0.4-2.0) mmol/L Calcium (8.5-10.1) mg/dL Total Bilirubin (0.2-1.0) mg/dL AST (15-37) U/L ALT (12-78) U/L Alkaline Phosphatase (46-116) U/L Ammonia 119 H (11-32) mmol/L Troponin I (0.000-0.056) ng/mL [id number] Pept (5-125) pg/mL Total Protein (6.4-8.2) g/dL Albumin (3.4-5.0) g/dL Globulin (2.3-3.5) g/dL Albumin/Globulin Ratio (1.2-2.2) Lipase (73-393) U/L Urine Color Urine Appearance Urine pH (4.5-8.0) Ur Specific [place] (1.008-1.030) Urine Protein (NEGATIVE) mg/dL Urine Glucose (UA) (NEGATIVE) mg/dL Urine Ketones (NEGATIVE) mg/dL Urine Occult Blood (NEGATIVE) Urine Nitrite (NEGATIVE) Urine Bilirubin (NEGATIVE) Urine Urobilinogen (NORMAL) mg/dL Ur Leukocyte Esterase (NEGATIVE) Urine RBC (0-5) Urine WBC (0-5) Ur Epithelial Cells Amorphous Sediment Urine Bacteria Urine Mucus 07/22/16 07/22/16 07/22/16 Range/Units 08:16 08:16 08:18 WBC (4.5-11.0) K/uL RBC (3.30-5.50) M/uL Hgb (12.0-15.0) g/dL Hct (36.0-48.0) % MCV (80-98) fL MCH (27-31) pg MCHC (32-36) % Plt Count (150-400) K/uL Neut % (Auto) (36-66) % Lymph % (Auto) (24-44) % [place] % (Auto) (2-6) % Eos % (Auto) (2-4) % Baso % (Auto) (0-1) % PT (9.5-12.0) sec INR (0.80-1.20) APTT (27.0-36.0) sec Sodium 139 L (140-148) mmol/L Potassium 3.4 L (3.6-5.2) mmol/L Chloride 106 (100-108) mmol/L Carbon Dioxide 19 L (21-32) mmol/L Anion Gap 17.4 H (5.0-14.0) mmol/L BUN 13 (7-18) mg/dL Creatinine 1.3 H (0.6-1.0) mg/dL Est Cr Clr Drug Dosing 39.50 mL/min Estimated GFR (MDRD) 42 L (>60) Glucose 102 (74-106) mg/dL Lactic Acid 4.6 H (0.4-2.0) mmol/L Calcium 7.8 L (8.5-10.1) mg/dL Total Bilirubin 3.0 H (0.2-1.0) mg/dL AST 85 H (15-37) U/L ALT 45 (12-78) U/L Alkaline Phosphatase 205 H (46-116) U/L Ammonia (11-32) mmol/L Troponin I 0.021 (0.000-0.056) ng/mL [id number] Pept (5-125) pg/mL Total Protein 6.7 (6.4-8.2) g/dL Albumin 2.7 L (3.4-5.0) g/dL Globulin 4.0 H (2.3-3.5) g/dL Albumin/Globulin Ratio 0.7 L (1.2-2.2) Lipase 72 L (73-393) U/L Urine Color Urine Appearance Urine pH (4.5-8.0) Ur Specific [place] (1.008-1.030) Urine Protein (NEGATIVE) mg/dL Urine Glucose (UA) (NEGATIVE) mg/dL Urine Ketones (NEGATIVE) mg/dL Urine Occult Blood (NEGATIVE) Urine Nitrite (NEGATIVE) Urine Bilirubin (NEGATIVE) Urine Urobilinogen (NORMAL) mg/dL Ur Leukocyte Esterase (NEGATIVE) Urine RBC (0-5) Urine WBC (0-5) Ur Epithelial Cells Amorphous Sediment Urine Bacteria Urine Mucus 07/22/16 07/22/16 Range/Units 08:18 12:05 WBC (4.5-11.0) K/uL RBC (3.30-5.50) M/uL Hgb (12.0-15.0) g/dL Hct (36.0-48.0) % MCV (80-98) fL MCH (27-31) pg MCHC (32-36) % Plt Count (150-400) K/uL Neut % (Auto) (36-66) % Lymph % (Auto) (24-44) % [place] % (Auto) (2-6) % Eos % (Auto) (2-4) % Baso % (Auto) (0-1) % PT (9.5-12.0) sec INR (0.80-1.20) APTT (27.0-36.0) sec Sodium (140-148) mmol/L Potassium (3.6-5.2) mmol/L Chloride (100-108) mmol/L Carbon Dioxide (21-32) mmol/L Anion Gap (5.0-14.0) mmol/L BUN (7-18) mg/dL Creatinine (0.6-1.0) mg/dL Est Cr Clr Drug Dosing mL/min Estimated GFR (MDRD) (>60) Glucose (74-106) mg/dL Lactic Acid (0.4-2.0) mmol/L Calcium (8.5-10.1) mg/dL Total Bilirubin (0.2-1.0) mg/dL AST (15-37) U/L ALT (12-78) U/L Alkaline Phosphatase (46-116) U/L Ammonia (11-32) mmol/L Troponin I (0.000-0.056) ng/mL [id number] Pept 353 H (5-125) pg/mL Total Protein (6.4-8.2) g/dL Albumin (3.4-5.0) g/dL Globulin (2.3-3.5) g/dL Albumin/Globulin Ratio (1.2-2.2) Lipase (73-393) U/L Urine Color Yellow Urine Appearance Cloudy Urine pH 5.0 (4.5-8.0) Ur Specific [place] 1.020 (1.008-1.030) Urine Protein 30 H (NEGATIVE) mg/dL Urine Glucose (UA) Normal (NEGATIVE) mg/dL Urine Ketones 15 H (NEGATIVE) mg/dL Urine Occult Blood Moderate (NEGATIVE) Urine Nitrite Negative (NEGATIVE) Urine Bilirubin Moderate (NEGATIVE) Urine Urobilinogen 4 (NORMAL) mg/dL Ur Leukocyte Esterase Small (NEGATIVE) Urine RBC 10-20 H (0-5) Urine WBC 10-20 H (0-5) Ur Epithelial Cells Many Amorphous Sediment Not seen Urine Bacteria Moderate Urine Mucus Not seen Result Diagrams: 07/22/16 08:16 07/22/16 08:16 *Q Meaningful Use (ADM) - VTE *Q VTE Criteria *Q: - Stroke *Q Stroke Criteria *Q: - AMI *Q AMI Criteria *Q: Problem List Initiated/Reviewed/Updated: Yes Orders Last 24hrs: Active Orders 24 hr Category Date Time Status Hernandez Catheter Insertion [Insert Urinary Catheter] [OM. Care 07/22/16 09:00 Ordered PC] Q24H Peripheral IV Care [RC] . DIRECTED Care 07/22/16 08:09 Active Peripheral IV Care [RC] . DIRECTED Care 07/22/16 10:30 Active Urinary Catheter Assessment [RC] ASDIRECTED Care 07/22/16 08:52 Active Abdomen Pelvis wo Cont [CT] Stat Exams 07/22/16 08:19 Taken Chest 1V Frontal [CR] Urgent Exams 07/22/16 08:28 Taken CULTURE BLOOD [BC] Urgent Lab 07/22/16 08:02 Received CULTURE BLOOD [BC] Urgent Lab 07/22/16 08:15 Received Blood Culture x2 Reflex Set [OM.PC] Urgent Oth 07/22/16 08:09 Ordered Peripheral IV Insertion Adult [OM.PC] Urgent Oth 07/22/16 08:09 Ordered Peripheral IV Insertion Adult [OM.PC] Urgent Oth 07/22/16 10:30 Ordered Assessment/Plan Comment:: Assessment/plan: #1. Liver failure. This is secondary to cirrhosis which she' s had the past Secondary to alcohol consumption and she does not drink at the present time. I feel that her liver is in significant failure. #2. Hypotension. Her blood pressure is ranging from 68-91 systolic and unable to get her blood pressure up even though she is on pressors. Her urine output is minimal because of the hypotension possibly secondary to septic shock. #3. Depression this is a chronic condition. #4. Thrombocytopenia. #5. Expect septicemia. Her meld score is 17 which is of concern. Her bilirubin is 3, white count 9000, lactic acid 4.6. Her liver enzymes are up her spleen is very large according to the CT and the liver as large as well and he also has significant ascites. The INR is 1.53. The creatinine 1.3 with EGFR of 35. The ammonia level is 119. The platelet count is 60,000. The alkaline phosphatase 205. Lipase is 72. I feel that she is more than what we can handle at this facility and he is be sent to the [facility]. I have called [facility] And they would not accept her because of the seriousness of her condition. Officer the emergency room doctor will arrange for transfer to the [facility]. 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
--- NOTE | 2016-07-23 09:51 | CR ---
Chest 1V Frontal HISTORY: Dyspnea COMPARISON: 06/30/2016 FINDINGS: Portable chest, 0930 hours. Lungs appear clear and normally aerated. Cardiomediastinal silhouette is within normal limits. No va scular redistribution or pleural fluid can be seen. Bony structures and soft tissues are unremarkabl e. IMPRESSION: No acute chest abnormality or significant interval change is identified.
== END 2016-07-22 13:19 | disposition critical access hospital (66) ==
LOC: JP.ED 07:20
DX: K72.90 Hepatic failure, unspecified without coma (principal); K75.81 Nonalcoholic steatohepatitis (NASH); A41.9 Sepsis, unspecified organism; F32.9 Major depressive disorder, single episode, unspecified; E66.9 Obesity, unspecified; Z98.84 Bariatric surgery status; Z90.710 Acquired absence of both cervix and uterus; Z96.659 Presence of unspecified artificial knee joint; Z79.899 Other long term (current) drug therapy; Z88.5 Allergy status to narcotic agent; Z88.8 Allergy status to other drugs, medicaments and biological substances; Z91.030 Bee allergy status; Z91.038 Other insect allergy status
CPT/HCPCS: 36415; 51702; 71010; 74176; 80053; 81001; 82140; 83605; 83690; 83880; 84484; 85025; 85610; 85730; 87040; 87077; 96361; 96365; 96375; 99285; A9270; J0698; J1170; J2405; J7030; J7040; J7050; J7120; J7060